=== PATIENT | female | born 1955 | race Caucasian/White ===

== ENCOUNTER 2017-12-25 15:03 | Inpatient (IN) | payer MEDICARE, BC ==
[2017-12-25] MEDS: SODIUM CHLORIDE 0.9% 1L BAG IV* (17:17)
[2017-12-25] MEDS: ACETAMINOPHEN 325 MG TAB PO (17:20)
[2017-12-25] MEDS: ONDANSETRON 4 MG INJ IV ×2 (17:20→23:55)
[2017-12-25 17:21] LABS: ADD MAN DIFF? NO
[2017-12-25 17:25] LABS: WHITE BLOOD COUNT 14.7 10^3/ul (4.8-10.8)
[2017-12-25 17:25] LABS: BASOPHILS % 0.2 % (0.0-2.0); EOSINOPHILS % 0.3 % (0.0-7.0); HEMOGLOBIN 9.6 g/dl (12.0-16.0); LYMPHOCYTES # 1.5 10^3/ul (0.8-2.9); LYMPHOCYTES % 9.9 % (15.0-51.0); MEAN CORPUSCULAR HEMOGLOBIN 30.8 pg (29.0-33.0); MEAN CORPUSCULAR VOLUME 99.4 fl (82.0-101.0); MEAN PLATELET VOLUME 11.4 fl (7.4-10.4); MONOCYTE # 1.2 10^3/ul (0.3-0.9); MONOCYTES % 8.1 % (0.0-11.0); NEUTROPHILS % 81.2 % (39.0-77.0); PLATELET COUNT 190 10^3/UL (140-415); RED BLOOD COUNT 3.12 10^6/ul (4.20-5.40)
[2017-12-25] MEDS: SOD CHLORIDE 0.9% 500 ML IV (17:31)
[2017-12-25 17:43] LABS: ALANINE AMINOTRANSFERASE 21 IU/L (13-69); ALBUMIN 4.1 g/dl (3.3-4.9); ALBUMIN/GLOBULIN RATIO 0.97; ALKALINE PHOSPHATASE 177 IU/L (42-121); ANION GAP 18 (8-16); ASPARTATE AMINO TRANSFERASE 25 IU/L (15-46); BILIRUBIN,INDIRECT 0.1 mg/dl (0-1.1); BILIRUBIN,TOTAL 0.1 mg/dl (0.2-1.3); BLOOD UREA NITROGEN 41 mg/dl (7-20); CALCIUM 9.7 mg/dl (8.4-10.2); CARBON DIOXIDE 27 mmol/L (21-31); CHLORIDE 101 mmol/L (97-110); GLUCOSE 118 mg/dl (70-220); POTASSIUM 5.1 mmol/L (3.5-5.1); SODIUM 141 mmol/L (135-144); TOTAL PROTEIN 8.3 g/dl (6.1-8.1)
[2017-12-25 17:44] LABS: LACTIC ACID 1.9 mmol/L (0.5-2.0)
[2017-12-25 17:48] LABS: INR 1.04; PROTIME 13.7 Sec (11.9-14.9); PT RATIO 1.1
[2017-12-25 17:49] LABS: PARTIAL THROMBOPLASTIN TIME 31.4 Sec (25.0-35.0)
[2017-12-25 18:00] LABS: TROPONIN-I < 0.012 ng/ml (0.00-0.12)
[2017-12-25 19:40] LABS: B-TYPE NATRIURETIC PEPTIDE 8930 PG/ML (0-125)
[2017-12-25] MEDS: CEFEPIME 1GM/50 ML (PMX) 50 ML IVPB (20:44)
[2017-12-25] MEDS: VANCOMYCIN 1 GM (PMX) 250 ML IVPB (22:02)
[2017-12-25] MEDS ORDERED: GLUCAGON 1 MG INJ IM (23:00)
[2017-12-25] MEDS ORDERED: GLUCOSE GEL 15 GRAM TUBE BUCCAL (23:00)
[2017-12-25] MEDS ORDERED: NACL 0.9% 3 ML SYG IV (23:00)
[2017-12-25] MEDS ORDERED: GLUCOSE GEL 15 GRAM TUBE PO ×2 (23:00)
[2017-12-25] MEDS ORDERED: NITROGLYCERIN (SL) 0.4 MG TAB SL (23:00)
[2017-12-25] MEDS ORDERED: DEXTROSE 50% 50 ML SYRINGE IV ×2 (23:00)
[2017-12-25] MEDS: morphine 2 MG INJ IV (23:55)
[2017-12-26] MEDS: ACCU-CHEK XX (02:40)
[2017-12-26] MEDS: PANTOPRAZOLE (EC) 40 MG TAB PO ×2 (06:21→17:39)
[2017-12-26] MEDS: ACETAMINOPHEN 325 MG TAB PO (06:21)
[2017-12-26] MEDS ORDERED: VANCOMYCIN IV PER PHARMACY XX (07:00)
[2017-12-26] MEDS ORDERED: SOD CHLORIDE 0.9% 1,000 ML IV (07:00)
[2017-12-26] MEDS: INSULIN ASPART [NOVOLOG] 3 ML PEN SC ×4 (08:00→21:00)
[2017-12-26 08:12] LABS: ADD MAN DIFF? NO
[2017-12-26 08:16] LABS: WHITE BLOOD COUNT 12.1 10^3/ul (4.8-10.8)
[2017-12-26 08:16] LABS: BASOPHILS % 0.2 % (0.0-2.0); EOSINOPHILS # 0.1 10^3/ul (0.0-0.5); EOSINOPHILS % 0.6 % (0.0-7.0); HEMATOCRIT 28.6 % (37.0-47.0); HEMOGLOBIN 8.9 g/dl (12.0-16.0); LYMPHOCYTES # 1.1 10^3/ul (0.8-2.9); LYMPHOCYTES % 9.4 % (15.0-51.0); MEAN CORPUSCULAR HEMOGLOBIN 30.6 pg (29.0-33.0); MEAN CORPUSCULAR HGB CONC 31.1 g/dl (32.0-37.0); MEAN CORPUSCULAR VOLUME 98.3 fl (82.0-101.0); MEAN PLATELET VOLUME 10.6 fl (7.4-10.4); MONOCYTE # 1.1 10^3/ul (0.3-0.9); MONOCYTES % 8.9 % (0.0-11.0); NEUTROPHIL # 9.7 10^3/ul (1.6-7.5); NEUTROPHILS % 80.6 % (39.0-77.0); PLATELET COUNT 198 10^3/UL (140-415); RED BLOOD COUNT 2.91 10^6/ul (4.20-5.40); RED CELL DISTRIBUTION WIDTH 17.7 % (11.5-14.5)
[2017-12-26 08:32] LABS: CREATINE KINASE 26 IU/L (23-200)
[2017-12-26 08:37] LABS: ALANINE AMINOTRANSFERASE 23 IU/L (13-69); ALBUMIN 3.6 g/dl (3.3-4.9); ALBUMIN/GLOBULIN RATIO 0.94; ALKALINE PHOSPHATASE 150 IU/L (42-121); ANION GAP 22 (8-16); ASPARTATE AMINO TRANSFERASE 13 IU/L (15-46); BLOOD UREA NITROGEN 49 mg/dl (7-20); CALCIUM 9.5 mg/dl (8.4-10.2); CARBON DIOXIDE 25 mmol/L (21-31); CHLORIDE 103 mmol/L (97-110); CHOLESTEROL 92 mg/dl (100-200); CREATININE 9.62 mg/dl (0.44-1.00); GLUCOSE 100 mg/dl (70-220); HDL CHOLESTEROL 44 mg/dl (35-98); LDL CHOLESTEROL,CALCULATED 28 mg/dl; MAGNESIUM 2.1 mg/dl (1.7-2.5); POTASSIUM 5.6 mmol/L (3.5-5.1); SODIUM 144 mmol/L (135-144); TOTAL PROTEIN 7.4 g/dl (6.1-8.1); TRIGLYCERIDES 98 mg/dl (0-149)
[2017-12-26 08:37] LABS: HEMOGLOBIN A1C 5.5 % (0-5.9)
[2017-12-26 08:45] LABS: CK INDEX 0.8; TROPONIN-I 0.016 ng/ml (0.00-0.12)
[2017-12-26 08:48] LABS: CK-MB < 0.22 ng/ml (0.0-2.4)
[2017-12-26] MEDS: FOLIC ACID 1 MG TAB PO (09:10)
[2017-12-26] MEDS: MULTIVIT/CA CARB/B CMPLX/FA TAB PO (09:10)
[2017-12-26] MEDS: ZINC SULFATE 220 MG CAP PO (09:10)
[2017-12-26] MEDS: METOCLOPRAMIDE 5 MG TAB PO ×3 (09:10→21:44)
[2017-12-26] MEDS: SEVELAMER 800 MG TAB PO ×2 (09:10→21:42)
[2017-12-26] MEDS: LEVOFLOXACIN 750MG/D5W (PMX) 150 ML IVPB (09:12)
[2017-12-26 09:31] LABS: D-DIMER > 10000.00 ng/ml (<460)
[2017-12-26] MEDS: VANCOMYCIN 500MG/NS (PMX) 100 ML IVPB (10:39)
[2017-12-26] MEDS: PROPRANOLOL 10 MG TAB PO (12:43)
[2017-12-26] MEDS: CINACALCET 30 MG TAB PO (12:44)
[2017-12-26 15:15] LABS: CREATINE KINASE 36 IU/L (23-200)
[2017-12-26 15:24] LABS: CK INDEX 0.7; CK-MB 0.25 ng/ml (0.0-2.4)
[2017-12-26 15:29] LABS: TROPONIN-I < 0.012 ng/ml (0.00-0.12)
[2017-12-26] MEDS: POLYETHYLENE GLYCOL 17 GM PACKET PO ×2 (15:35→21:43)
[2017-12-26] MEDS: ONDANSETRON 4 MG INJ IV (15:41)
[2017-12-26 19:26] LABS: HEPATITIS B SURFACE ANTIGEN NEGATIVE (NEGATIVE)
[2017-12-26 20:21] LABS: HEPATITIS B SURFACE ANTIBODY POSITIVE (NEGATIVE)
[2017-12-26] MEDS: ATORVASTATIN 20 MG TAB PO (21:44)
[2017-12-26] MEDS: HEPARIN 5,000 UNIT/0.5 ML VIAL SC (22:04)
[2017-12-26] MEDS: EPOETIN 10000 UNITS/1 ML INJ (ESRD) SC (22:07)
[2017-12-27] MEDS: ACCU-CHEK XX (03:00)
[2017-12-27] MEDS: PANTOPRAZOLE (EC) 40 MG TAB PO ×2 (06:36→17:24)
[2017-12-27] MEDS: INSULIN ASPART [NOVOLOG] 3 ML PEN SC ×4 (08:00→21:33)
[2017-12-27 08:59] LABS: ADD MAN DIFF? NO
[2017-12-27] MEDS: PROPRANOLOL 10 MG TAB PO (09:00)
[2017-12-27 09:05] LABS: BASOPHILS % 0.2 % (0.0-2.0); EOSINOPHILS # 0.1 10^3/ul (0.0-0.5); EOSINOPHILS % 1.3 % (0.0-7.0); HEMATOCRIT 29.3 % (37.0-47.0); HEMOGLOBIN 9.1 g/dl (12.0-16.0); LYMPHOCYTES % 9.5 % (15.0-51.0); MEAN CORPUSCULAR HEMOGLOBIN 30.4 pg (29.0-33.0); MEAN CORPUSCULAR HGB CONC 31.1 g/dl (32.0-37.0); MEAN PLATELET VOLUME 10.8 fl (7.4-10.4); NEUTROPHILS % 78.5 % (39.0-77.0); PLATELET COUNT 194 10^3/UL (140-415); RED BLOOD COUNT 2.99 10^6/ul (4.20-5.40); RED CELL DISTRIBUTION WIDTH 17.2 % (11.5-14.5)
[2017-12-27 09:05] LABS: WHITE BLOOD COUNT 10.2 10^3/ul (4.8-10.8)
[2017-12-27] MEDS: POLYETHYLENE GLYCOL 17 GM PACKET PO ×2 (09:12→21:40)
[2017-12-27] MEDS: ZINC SULFATE 220 MG CAP PO (09:12)
[2017-12-27] MEDS: MULTIVIT/CA CARB/B CMPLX/FA TAB PO (09:12)
[2017-12-27] MEDS: BISACODYL (EC) 5 MG TAB PO (09:12)
[2017-12-27] MEDS: SEVELAMER 800 MG TAB PO ×2 (09:12→21:40)
[2017-12-27] MEDS: FOLIC ACID 1 MG TAB PO (09:12)
[2017-12-27] MEDS: CINACALCET 30 MG TAB PO (09:12)
[2017-12-27] MEDS: METOCLOPRAMIDE 5 MG TAB PO ×3 (09:12→21:39)
[2017-12-27] MEDS: HEPARIN 5,000 UNIT/0.5 ML VIAL SC ×2 (09:16→21:33)
[2017-12-27 09:27] LABS: ALANINE AMINOTRANSFERASE 22 IU/L (13-69); ALBUMIN 3.7 g/dl (3.3-4.9); ALBUMIN/GLOBULIN RATIO 1.02; ALKALINE PHOSPHATASE 166 IU/L (42-121); ANION GAP 17 (8-16); ASPARTATE AMINO TRANSFERASE 18 IU/L (15-46); BLOOD UREA NITROGEN 27 mg/dl (7-20); CALCIUM 9.4 mg/dl (8.4-10.2); CARBON DIOXIDE 31 mmol/L (21-31); CHLORIDE 101 mmol/L (97-110); CREATININE 6.11 mg/dl (0.44-1.00); GLUCOSE 103 mg/dl (70-220); POTASSIUM 4.6 mmol/L (3.5-5.1); SODIUM 144 mmol/L (135-144); TOTAL PROTEIN 7.3 g/dl (6.1-8.1)
[2017-12-27] MEDS: ONDANSETRON 4 MG TAB PO (10:36)
[2017-12-27] MEDS ORDERED: ONDANSETRON 4 MG INJ IV (12:00)
[2017-12-27] MEDS: ONDANSETRON 4 MG INJ IV (12:29)
[2017-12-27 12:51] LABS: IRON 20 ug/dl (35-150)
[2017-12-27 13:00] LABS: % IRON SATURATION 18 % SAT (22-52); TOTAL IRON BINDING CAPACITY 111 ug/dl (241-421)
[2017-12-27] MEDS: BISACODYL 10 MG SUPP PR (17:24)
[2017-12-27] MEDS: ATORVASTATIN 20 MG TAB PO (21:39)
[2017-12-27] MEDS: ACETAMINOPHEN 325 MG TAB PO (23:52)
[2017-12-28] MEDS: ACCU-CHEK XX (02:00)
[2017-12-28 05:17] LABS: ADD MAN DIFF? NO
[2017-12-28 05:24] LABS: BASOPHILS % 0.3 % (0.0-2.0); EOSINOPHILS # 0.1 10^3/ul (0.0-0.5); EOSINOPHILS % 1.3 % (0.0-7.0); HEMATOCRIT 28.8 % (37.0-47.0); HEMOGLOBIN 9.1 g/dl (12.0-16.0); LYMPHOCYTES # 1.4 10^3/ul (0.8-2.9); MEAN CORPUSCULAR HEMOGLOBIN 30.7 pg (29.0-33.0); MEAN CORPUSCULAR HGB CONC 31.6 g/dl (32.0-37.0); MEAN CORPUSCULAR VOLUME 97.3 fl (82.0-101.0); MEAN PLATELET VOLUME 11.1 fl (7.4-10.4); MONOCYTES % 9.4 % (0.0-11.0); NEUTROPHIL # 7.6 10^3/ul (1.6-7.5); NEUTROPHILS % 74.6 % (39.0-77.0); PLATELET COUNT 200 10^3/UL (140-415); RED BLOOD COUNT 2.96 10^6/ul (4.20-5.40); RED CELL DISTRIBUTION WIDTH 17.1 % (11.5-14.5)
[2017-12-28 05:24] LABS: WHITE BLOOD COUNT 10.2 10^3/ul (4.8-10.8)
[2017-12-28 05:44] LABS: ANION GAP 19 (8-16); BLOOD UREA NITROGEN 47 mg/dl (7-20); CALCIUM 9.4 mg/dl (8.4-10.2); CARBON DIOXIDE 27 mmol/L (21-31); CHLORIDE 102 mmol/L (97-110); CREATININE 8.55 mg/dl (0.44-1.00); GLUCOSE 103 mg/dl (70-220); POTASSIUM 4.8 mmol/L (3.5-5.1); SODIUM 143 mmol/L (135-144)
[2017-12-28 05:48] LABS: PHOSPHORUS 4.9 mg/dl (2.5-4.9)
[2017-12-28 05:48] LABS: MAGNESIUM 2.3 mg/dl (1.7-2.5)
[2017-12-28] MEDS: PANTOPRAZOLE (EC) 40 MG TAB PO ×2 (06:18→17:15)
[2017-12-28 06:28] LABS: VANCOMYCIN,RANDOM 13.9 ug/ml
[2017-12-28] MEDS: INSULIN ASPART [NOVOLOG] 3 ML PEN SC ×4 (08:00→21:00)
[2017-12-28] MEDS: CINACALCET 30 MG TAB PO (09:00)
[2017-12-28] MEDS: SEVELAMER 800 MG TAB PO ×2 (09:13→21:21)
[2017-12-28] MEDS: MULTIVIT/CA CARB/B CMPLX/FA TAB PO (09:14)
[2017-12-28] MEDS: FOLIC ACID 1 MG TAB PO (09:14)
[2017-12-28] MEDS: POLYETHYLENE GLYCOL 17 GM PACKET PO ×2 (09:14→21:21)
[2017-12-28] MEDS: PROPRANOLOL 10 MG TAB PO (09:14)
[2017-12-28] MEDS: LEVOFLOXACIN 750MG/D5W (PMX) 150 ML IVPB (09:14)
[2017-12-28] MEDS: ZINC SULFATE 220 MG CAP PO (09:14)
[2017-12-28] MEDS: METOCLOPRAMIDE 5 MG TAB PO ×3 (09:14→21:21)
[2017-12-28] MEDS: HEPARIN 5,000 UNIT/0.5 ML VIAL SC ×2 (09:20→21:22)
[2017-12-28] MEDS: VANCOMYCIN 1 GM 250 ML IVPB (10:55)
[2017-12-28] MEDS ORDERED: SOD CHLORIDE 0.9% 1,000 ML IV (18:22)
[2017-12-28] MEDS ORDERED: HEPARIN 1000 UNITS/ML 10 ML INJ CATHETER (18:30)
[2017-12-28] MEDS: ATORVASTATIN 20 MG TAB PO (21:21)
[2017-12-28] MEDS: ACETAMINOPHEN 325 MG TAB PO (22:41)
[2017-12-29] MEDS: ACCU-CHEK XX (02:00)
[2017-12-29] MEDS: PANTOPRAZOLE (EC) 40 MG TAB PO ×2 (05:34→18:17)
[2017-12-29] MEDS: INSULIN ASPART [NOVOLOG] 3 ML PEN SC ×3 (08:00→18:05)
[2017-12-29] MEDS: CINACALCET 30 MG TAB PO (08:33)
[2017-12-29] MEDS: ZINC SULFATE 220 MG CAP PO (08:33)
[2017-12-29] MEDS: SEVELAMER 800 MG TAB PO (08:33)
[2017-12-29] MEDS: MULTIVIT/CA CARB/B CMPLX/FA TAB PO (08:33)
[2017-12-29] MEDS: POLYETHYLENE GLYCOL 17 GM PACKET PO (08:33)
[2017-12-29] MEDS: FOLIC ACID 1 MG TAB PO (08:33)
[2017-12-29] MEDS: METOCLOPRAMIDE 5 MG TAB PO ×2 (08:33→12:59)
[2017-12-29] MEDS: PROPRANOLOL 10 MG TAB PO (08:34)
[2017-12-29] MEDS: HEPARIN 5,000 UNIT/0.5 ML VIAL SC (08:38)
[2017-12-29] MEDS: ONDANSETRON 4 MG INJ IV (11:34)
[2017-12-29] MEDS: ACETAMINOPHEN 325 MG TAB PO (12:59)
[2017-12-29] MEDS: EPOETIN 10000 UNITS/1 ML INJ (ESRD) SC (18:18)
== END 2017-12-29 19:20 | disposition home or self-care (01) | DRG 871 ==
LOC: MS4 21:04 → E/R 15:03
PROC: 5A1D70Z Performance of Urinary Filtration, Intermittent, Less than 6 Hours Per Day (ICD-10-PCS; 2017-12-26)
PROC: 5A1D70Z Performance of Urinary Filtration, Intermittent, Less than 6 Hours Per Day (ICD-10-PCS; principal; 2017-12-28)
DX: A41.9 Sepsis, unspecified organism (principal); N18.6 End stage renal disease; I13.2 Hypertensive heart and chronic kidney disease with heart failure and with stage 5 chronic kidney disease, or end stage renal disease; N25.81 Secondary hyperparathyroidism of renal origin; E11.22 Type 2 diabetes mellitus with diabetic chronic kidney disease; I50.9 Heart failure, unspecified; Z99.2 Dependence on renal dialysis; E03.9 Hypothyroidism, unspecified; D63.1 Anemia in chronic kidney disease; E78.5 Hyperlipidemia, unspecified; R07.9 Chest pain, unspecified; K59.00 Constipation, unspecified; R11.2 Nausea with vomiting, unspecified; J20.9 Acute bronchitis, unspecified; Z79.4 Long term (current) use of insulin; N64.4 Mastodynia; R07.89 Other chest pain
CPT/HCPCS: 36415; 71045; 71250; 76641; 80048; 80053; 80061; 80202; 82550; 82553; 82728; 82962; 83036; 83540; 83605; 83735; 83880; 84100; 84443; 84484; 85025; 85378; 85610; 85730; 86706; 87040; 87081; 87275; 87276; 87279; 87280; 87340; 87400; 90935; 93005; 93306; 96374; 96375; 96376; 99291-25